=== PATIENT | female | born 1975 | race Caucasian/White ===

== ENCOUNTER 2017-06-30 14:27 | Emergency (ER) | payer BC ==
[~2017-06-30] VITALS: Ht 157.5 cm; Wt 106.5 kg
[~2017-06-30 14:27] MED LIST: AUGMENTIN875 MG PO; NOHOMEMEDS; Vicodin,Lortab 5/500 PO
[2017-06-30 16:35] LABS: HEMATOCRIT 42.3 % (36.0-46.0); MCH 29.2 PG (29.0-34.0); MCHC 32.6 G/DL (30.0-36.0); MCV 89.6 FL (83-99); MEAN PLAT.VOLUME 10.3 uM^3 (9.5-12.4); PLATELET COUNT 261 K/uL (156-360); RBC DIS.WIDTH-CV 12.5 % (11.8-14.6); RBC DIS.WIDTH-SD 41.5 % (39-53); RED BLOOD COUNT 4.72 M/uL (3.80-5.20); WHITE BLOOD COUNT 11.3 K/uL (4.1-10.2)
[2017-06-30 16:42] LABS: CHLORIDE 101 mEq/L (99-109); POTASSIUM 4.2 mEq/L (3.7-5.4); SODIUM 139 mEq/L (136-147)
[2017-06-30 16:43] LABS: GLUCOSE 83 mg/dL (70-99)
[2017-06-30 16:45] LABS: ANION GAP 12 MEQ/L (2-14)
[2017-06-30 16:47] LABS: GFR ESTIMATE (CALCULATED) > 59 mL/min/
[2017-06-30 16:48] LABS: UREA NITROGEN (BUN) 13 mg/dL (9-23)
[2017-06-30 18:38] VITALS: BP 130/76
== END 2017-06-30 18:38 | disposition home or self-care (01) ==
LOC: EME 14:27
DX: R51 Headache (principal); R42 Dizziness and giddiness; K21.9 Gastro-esophageal reflux disease without esophagitis; J44.9 Chronic obstructive pulmonary disease, unspecified; F17.200 Nicotine dependence, unspecified, uncomplicated
CPT/HCPCS: 70450; 80048; 85027; 99281; 99284; J1200; J1885; J2765; J7030

== ENCOUNTER → 2017-12-10 | Outpatient (CLI) | payer OTHER | END | disposition home or self-care (01) | LOC: CDC 11:00 | DX: Z01.810 Encounter for preprocedural cardiovascular examination (principal) | CPT/HCPCS: 93000 ==